=== PATIENT | female | born 1990 | race Two or more races ===

== ENCOUNTER 2022-06-05 01:56 | Emergency (ER) | payer OTHER ==
[~2022-06-05] VITALS: Ht 165.1 cm; Wt 79.4 kg
[2022-06-05] MEDS ORDERED: PEPCID40 MG PO (05:42)
[2022-06-05] MEDS ORDERED: ONDANSETRON ODT4 MG PO (05:42)
[2022-06-05] MEDS ORDERED: INTESTINEX680 M1 PO (05:42)
== END 2022-06-05 05:51 ==
LOC: ER 01:56
DX: K52.89 Other specified noninfective gastroenteritis and colitis (principal)